=== PATIENT | female | born 1965 | race Caucasian/White ===

== ENCOUNTER 2018-03-01 11:50 | Emergency (ER) | payer SELFPAY ==
[2018-03-01] MEDS ORDERED: Dexamethasone 4 mg/ml Vial ONE (13:11)
[2018-03-01] MEDS ORDERED: Ketorolac Tromethamine 30 MG/ML VIAL ONE (13:11)
== END 2018-03-01 14:02 | disposition home or self-care (01) ==
LOC: ERS 11:50
DX: G89.29 Other chronic pain (principal); M54.5 Low back pain; G62.9 Polyneuropathy, unspecified; I25.2 Old myocardial infarction; I10 Essential (primary) hypertension; M19.90 Unspecified osteoarthritis, unspecified site; F31.9 Bipolar disorder, unspecified; F17.210 Nicotine dependence, cigarettes, uncomplicated; Z79.891 Long term (current) use of opiate analgesic; Z71.6 Tobacco abuse counseling; Z79.01 Long term (current) use of anticoagulants; Z79.899 Other long term (current) drug therapy
CPT/HCPCS: 96372; 99406; J1100; J1885

== ENCOUNTER 2018-07-30 10:44 | Outpatient (CLI) | payer OTHER ==
--- NOTE | 2018-07-30 11:49 | MRI ---
MRI lumbar spine noncontrast: HISTORY: Neurogenic claudication COMPARISON: None FINDINGS: Appropriate T1 marrow signal intensity of the lumbar vertebra. Lumbar spine vertebral body height is maintained. There is no fracture. No significant STIR hyperintensity to suggest vertebral body edema or ligamentous injury. There are type I and type II Modic changes at the L5-S1 level 3.2 mm of anterolisthesis of L4 upon L5. Appropriate signal intensity in the visualized solid organs. Symmetric signal intensity of the paraspinal muscles Conus medullaris terminates at the mid L1 level T12-L1:Adequate disc hydration. No significant central canal stenosis or neural foraminal narrowing L1-2:Desiccation with moderate loss of disc space height. Minimal left paracentral disc bulge. Minima l ligament flavum thickening. Overall mild central canal stenosis and mild narrowing of the left suba rticular zone. Bilaterally, foramina are patent L2-3:Adequate disc hydration. Mild loss of disc space height. Minimal generalized disc bulge with a l eft paracentral component. Mild ligament flavum thickening and facet hypertrophy. Mild central canal stenosis. Neural foramina are patent. L3-4:Desiccation with mild to moderate loss of disc space height. Broad-based disc bulge, ligament fl avum thickening result in mild central canal stenosis. Right neural foramen is patent. Mild left fora antonina narrowing. L4-5:Desiccation along with a broad-based disc bulge, ligament flavum thickening and facet hypertroph y result in mild canal stenosis. Mild to moderate right and left foraminal narrowing. L5-S1:Severe loss of disc space height. Generalized disc bulge without significant central canal sten osis. Mild bilateral facet hypertrophy. Moderate right and mild left foraminal narrowing. IMPRESSION: 1. Grade 1 anterolisthesis of L4 upon L5. 2. No evidence of high-grade central canal stenosis. 3. [id number] bilateral neural foraminal narrowing at L4-L5. 4. Type I-2 Modic change at L5-S1.
== END 2018-07-30 10:45 | disposition home or self-care (01) ==
LOC: TBSIIMAG 10:44 → BICMRI 10:45
PROVIDERS: ATTEND Neurological Surgery
DX: M48.062 Spinal stenosis, lumbar region with neurogenic claudication (principal); M43.16 Spondylolisthesis, lumbar region
CPT/HCPCS: 72148

== ENCOUNTER 2019-12-25 12:43 | Outpatient (CLI) | payer MEDICARE ==
--- NOTE | 2019-12-25 13:28 | ULT ---
US Renal Bilateral STANDARD HISTORY: Recurrent UTIs COMPARISON: None. FINDINGS: The right kidney measures 10.7 cm in length and the left kidney measures 10.6 cm in length. No focal mass or hydronephrosis is seen on either side. Cortical echogenicity and thickness is normal. No shadowing calculi are noted. The urinary bladder is unremarkable. IMPRESSION: Normal exam.
== END 2019-12-25 12:44 | disposition home or self-care (01) ==
LOC: BICULT 12:43
PROVIDERS: ATTEND Physician Assistant
DX: N02.9 Recurrent and persistent hematuria with unspecified morphologic changes (principal); R80.1 Persistent proteinuria, unspecified; R10.30 Lower abdominal pain, unspecified
CPT/HCPCS: 76770